=== PATIENT | male | born 1960 | race Caucasian/White ===

== ENCOUNTER 2022-05-12 05:01 | Emergency (ER) | payer BC, SELFPAY ==
[2022-05-12 05:02] VITALS: BP 170/80; PULSE 89; RESP 18; TEMP 36.8; O2SAT 96; BMI 36.3
--- NOTE | 2022-05-12 05:25 | EKG12_ITS ---
Test Reason : Blood Pressure : / mmHG Vent. Rate : 081 BPM Atrial Rate : 081 BPM P-R Int : 162 ms QRS Dur : 078 ms QT Int : 348 ms P-R-T Axes : 060 042 041 degrees QTc Int : 404 ms Normal sinus rhythm Low voltage QRS Borderline ECG Confirmed by JESSICA ROJAS, ZEYAD ([id number]), manager editorial MARY AREVALO ([id number]) on 05/13/2022 9:54:52 AM Referred By: Confirmed By:BELEN LOPEZ MD
--- NOTE | 2022-05-12 05:26 | CT_ITS ---
EXAM: CT ABDOMEN AND PELVIS WITH INTRAVENOUS CONTRAST CLINICAL INDICATION: LLQ pain -- IV PO Contrast LLQ pain -- IV PO Contrast TECHNIQUE: Helically acquired images were obtained of the abdomen and pelvis with intravenous contrast. This CT exam was performed using one or more of the following dose reduction techniques: automated exposure control, adjustment of the mA and/or kV according to patient size, and/or use of iterative reconstruction technique. This report was created using [employer] report generation technology. CONTRAST: Oral and amp; IV Gastrografin and amp; 100mL Isovue-370 RADIATION DOSE: CTDIvol = 18.05 mGy, DLP = 1157.47 mGy-cm COMPARISON: None. FINDINGS: LOWER THORAX: There is a small hiatal hernia. There is mild bilateral posterior basilar atelectasis. No cardiomegaly. No significant pericardial effusion. ABDOMEN: LIVER: There is a small cyst in the left lobe liver. GALLBLADDER AND BILE DUCTS: Gallbladder is absent. No intra- or extrahepatic biliary ductal dilation. PANCREAS: Unremarkable. No focal cystic or solid mass. SPLEEN: The spleen is mildly enlarged. ADRENALS: Unremarkable. No nodules. KIDNEYS AND URETERS: There is a 3 x 3.8 x 2.7 cm mass arising from the medial lower pole left kidney, highly suspicious for renal cell carcinoma. There is a 2 mm nonobstructive left lower pole renal calculus. There is no demonstrated ureteral calculus or hydronephrosis. STOMACH AND BOWEL: There are colonic diverticula. There is mural thickening of the proximal sigmoid colon with adjacent fat infiltration, consistent with acute diverticulitis. There is no associated diverticular abscess or free intraperitoneal air. No stomach or bowel distention. PELVIS: APPENDIX: A normal appendix is seen on axial images 64-73. BLADDER: Assessment urinary bladder is limited by nondistention. REPRODUCTIVE: Unremarkable as visualized. No mass. ABDOMEN and PELVIS: INTRAPERITONEAL SPACE: Unremarkable. No ascites or other fluid collection. No free air. BONES/JOINTS: There are multilevel degenerative changes in the visualized spine. No suspicious lytic or blastic abnormality. SOFT TISSUES: Unremarkable. No discrete abdominal or pelvic wall hernia. 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 Abdominal aorta is non-dilated. LYMPH NODES: Unremarkable. No enlarged lymph nodes. CT/Abdomen/Pelvis WITH Contrast IMPRESSION: 1. 3.8 cm left renal mass, highly suspicious for renal cell carcinoma. Urology consultation is advised. 2. Acute diverticulitis of the proximal sigmoid colon. No demonstrated abscess or free intraperitoneal air. 3. Small nonobstructive left renal calculus. No demonstrated ureteral calculus or hydronephrosis. 4. Previous cholecystectomy. 5. Small hiatal hernia. 6. Mild splenomegaly. 7. Left-sided inferior vena cava, developmental variant. Electronically Signed: Gerber Arango MD at 7:53 EDT ,
--- NOTE | 2022-05-12 05:32 | EX.ED.DYSGE1 ---
HPI History of Present Illness Chief Complaint: Hypertension Detail of Chief Complaint: Hypertension, body aches, abdominal pain, constipation Informant: patient Onset/Context/Timing Onset: Yesterday Context: Gradual Onset Narrative Narrative: Patient presents with just not feeling well over the last 18 hours. He states he can feel his heartbeat in his ears and feels like his blood pressure is elevated. He states he normally runs in the 120s over 80s but does admit he has not had it checked since last October. States he has some body aches with mild headache. He was constipated earlier today. He did take some laxatives and had some results but states he still has lower abdominal pain worse on the left. He has felt feverish but did not measure temperature at home. PFSH PFS Medical History no medical history no medical history Home Medications ciprofloxacin HCl 500 mg tablet (Cipro) 500 mg PO BID #20 tabs 05/12/22 [Rx Last Taken Unknown] metronidazole 500 mg tablet 500 mg PO TID #30 tabs 05/12/22 [Rx Last Taken Unknown] multivitamin 1 cap PO DAILY 05/12/22 [History Last Taken Unknown] naproxen 500 mg tablet 450 mg PO DAILY 05/12/22 [History Last Taken Unknown] sildenafil 50 mg tablet (Viagra) 50 mg PO DAILY PRN Erectile Dysfuntion 05/12/22 [History Last Taken Unknown] Allergy/AdvReac Type Severity Reaction Status Date / Time No Known Allergies Allergy Verified 05/12/22 05:06 Surgical History History of knee replacement Social History Smoking Status: Former smoker ROS ROS ED Constitutional Constitutional ED: Denies chills or fever(s) Eyes Eyes: Denies change in vision or discharge from eye(s) ENT ENT ED: Denies discharge from eye(s), rhinorrhea or sore throat Cardiovascular Cardiovascular: Denies chest pain or palpitations Respiratory/Chest Respiratory/Chest: Denies cough or dyspnea Gastrointestinal Gastrointestinal: Reports abdominal pain and constipation; Denies diarrhea, nausea or vomiting Genitourinary Genitourinary ED: Denies difficulty urinating or dysuria Musculoskeletal Musculoskeletal: Reports myalgias; Denies back pain or extremity pain Integumentary Denies Abrasions or rash Neurologic Neurologic: Reports headache(s); Denies weakness Psychiatric Psychiatric: Denies anxiety or depression Allergic/Immunologic Allergic/Immunologic ED: Denies lip swelling or urticaria EXAM Physical Exam Const Vital Signs: 05/12/22 05:02 05/12/22 05:02 05/12/22 06:52 Temperature 98.2 F Temperature Source Temporal Pulse Rate 89 68 Respiratory Rate 18 19 H Respiratory Effort Normal Respiratory Pattern Normal Blood Pressure 170/80 H 125/86 H Blood Pressure Mean 110 99 Pulse Ox 96 92 Oxygen Delivery Method Room Air Room Air Positive well nourished and well developed General Appearance ED: well developed HEENT Reports normocephalic and head/scalp atraumatic Eyes PERRL and EOMs intact bilaterally Neck supple Chest Wall inspection of chest normal and palpation of chest normal Resp normal respiratory effort and clear to auscultation bilaterally Cardio regular rate and regular rhythm GI GI Narrative: Mild left lower quadrant tenderness to palpation. No guarding or rebound. Palpation: soft Back/Spine no CVA tenderness Extremity normal to inspection Neuro oriented x3 and no sensory deficits noted Sensorium / Orientation: alert Motor Exam: strength 5/5 throughout Psych mental status grossly normal Skin no rashes or lesions noted MDM MDM MDM Narrative Medical decision making narrative: Patient was given morphine and Zofran for pain. Labwork obtained to evaluate for leukocytosis, anemia, and electrolyte derangement. Urinalysis obtained to evaluate for infection/hematuria. CT scan of the abdomen pelvis was obtained given his left lower quadrant pain and constipation with concern for diverticulitis. Lab Data Attestation: I reviewed the patient's lab results. Labs: Laboratory Results - last 24 hr 05/12/22 05/12/22 05/12/22 05:45 05:45 07:00 WBC 12.0 H RBC 5.11 Hgb 14.7 Hct 44.0 MCV 86.1 MCH 28.8 MCHC 33.4 RDW Std Deviation 38.3 RDW Coeff of Siobhan 12.1 Plt Count 264 MPV 8.6 Immature Gran % (Auto) 0.600 Neut % (Auto) 79.8 H Lymph % (Auto) 10.6 L [place] % (Auto) 8.2 Eos % (Auto) 0.4 Baso % (Auto) 0.4 Absolute Neuts (auto) 9.5 H Absolute Lymphs (auto) 1.27 Nucleated RBC % 0 Sodium 142 Potassium 4.3 Chloride 109 H Carbon Dioxide 26.0 Anion Gap 7 BUN 14 Creatinine 1.11 Estim Creat Clear Calc 69.00 Est GFR (MDRD) Af Amer 86 Est GFR (MDRD) Non-Af 71 BUN/Creatinine Ratio 12.6 Glucose 126 H Calcium 9.0 Urine Color Yellow Urine Clarity Clear Urine pH 6.0 Ur Specific [place] 1.015 Urine Protein Negative Urine Glucose (UA) Normal Urine Ketones Negative Urine Occult Blood 10 H Urine Nitrite Negative Urine Bilirubin Negative Urine Urobilinogen Normal Ur Leukocyte Esterase Negative Urine RBC 0 SEEN Urine WBC 0 SEEN Ur Squamous Epith Cells 0 SEEN Urine Bacteria 0 SEEN Urine Mucus 0 SEEN Radiography Diagnostic Testing: Clinical Impression(s) from Imaging Studies Abdomen/Pelvis CT 05/12/22 05:26 IMPRESSION: 1. 3.8 cm left renal mass, highly suspicious for renal cell carcinoma. Urology consultation is advised. 2. Acute diverticulitis of the proximal sigmoid colon. No demonstrated abscess or free intraperitoneal air. 3. Small nonobstructive left renal calculus. No demonstrated ureteral calculus or hydronephrosis. 4. Previous cholecystectomy. 5. Small hiatal hernia. 6. Mild splenomegaly. 7. Left-sided inferior vena cava, developmental variant. Electronically Signed: Gerber Arango MD at 7:53 EDT Reading Location ID and State: [facility] / [place] , Service support , EKG Initial EKG: Attestation: I personally reviewed and interpreted this EKG as follows: Interpretation: Sinus Rhythm (Sinus 81 with no acute ischemia.) Treatment and Re-Evaluation :: CBC reveals a white count of 12.0 with 79% neutrophils. Chemistry studies are unremarkable. Urinalysis is normal. CT scan of the abdomen and pelvis reveals acute diverticulitis of the proximal sigmoid colon. No abscess or free air. There is also a 3.8 cm left renal mass that appears suspicious. Follow-up with urology is advised. On repeat evaluation patient resting comfortably. Systolic blood pressure is down to the 120s. He is complaining of a headache and will be given Tylenol. Test results are discussed with him. He will be started on Cipro and Flagyl for his diverticulitis. He has a urologist at [facility] that he will call on Friday for follow-up to evaluate his left renal mass. Discharge Plan Triage Chief Complaint: Hypertension ED Provider: Johanne Seo Dx/Rx/DC Orders Clinical Impression: Diverticulitis, Renal mass, left Instructions: ED Diverticulitis, ED Tumor, Uncertain Cause Prescriptions: New ciprofloxacin HCl [Cipro] 500 mg tablet 500 mg PO BID Qty: 20 0RF metronidazole 500 mg tablet 500 mg PO TID Qty: 30 0RF No Action sildenafil [Viagra] 50 mg Tablet 50 mg PO DAILY PRN (Reason: Erectile Dysfuntion) Rx Instructions: administer 30 minutes to 4 hours before activity multivitamin Capsule 1 cap PO DAILY naproxen 500 mg Tablet 450 mg PO DAILY Activity Restrictions/Additional Instructions: Please complete your full course of antibiotics to treat your diverticulitis. As discussed, your CT scan does reveal a left renal mass that needs close follow-up. Please call your urologist at [facility] for follow-up soon as possible. Disposition Disposition: Home, Self Care
[2022-05-12] MEDS: Ondansetron 4 MG/2 ML Vial IV (05:41)
[2022-05-12] MEDS: Morphine 4 MG/ML Syringe IV ×2 (05:41→08:39)
[2022-05-12 06:07] LABS: Absolute Lymphocyte Count 1.27 X10^3/uL (0.83-4.51); Absolute Neutrophil Count 9.5 X10^3/uL (2.0-7.7); Basophil# 0.05 X10^3/uL; Basophil% 0.4 % (0-1); Eosinophil# 0.05 X10^3/uL; Eosinophils% 0.4 % (0-5); Hemoglobin 14.7 g/dL (13.0-16.5); Lymphocyte # 1.27 X10^3/ul (0.83-4.51); Lymphocyte % 10.6 % (19-41); Mean Corp Hgb Conc 33.4 g/dL (32-36); Mean Corpuscular Hgb 28.8 pg (27.0-32.0); Mean Corpuscular Volume 86.1 fL (80-94); Mean Platelet Vol. 8.6 fl (6.2-12.0); Monocyte# 0.98 X10^3/uL; Monocyte% 8.2 % (0-10); NRBC Flagged by Analyzer 0 % (0-5); Neutrophil # 9.53 X10^3/uL (2.7-7.7); Neutrophil % 79.8 % (47-70); Platelet Count 264 K/mm3 (150-450); RBC Distribution Width CV 12.1 % (11.6-14.6); RBC Distribution Width SD 38.3 fl (35.1-43.9); Red Blood Count 5.11 M/mm3 (4.6-6.2)
[2022-05-12 06:24] LABS: Anion Gap 7 (5-15); BUN 14 mg/dL (7-18); BUN/Creat Ratio 12.6 RATIO (10-20); Chloride 109 mmol/L (98-107); Creatinine, Serum 1.11 mg/dL (0.70-1.30); EST Glomerular Filtration Rate 71 mL/min (>60); Est Glom Filt Rate - Afr Amer 86 mL/min (>60); Glucose 126 mg/dL (74-106); Potassium 4.3 mmol/L (3.5-5.1); Sodium Level 142 mmol/L (136-145)
[2022-05-12 06:52] VITALS: BP 125/86; PULSE 68; RESP 19; O2SAT 92
[2022-05-12 07:04] LABS: Bacteria 0 SEEN /hpf (None Seen); Mucous, Urine 0 SEEN /hpf (<or=2+); Red Blood Cells-Urine 0 SEEN /hpf (0-5); Squamous Epithelial Cells - UA 0 SEEN /hpf (0-5); White Blood Cells 0 SEEN /hpf (0-5)
[2022-05-12 07:41] LABS: Color, Urine Yellow (Yellow); Glucose, Dipstick Normal (Normal); Ketone-Dipstick Negative (Negative); Leukocyte Esterase-Dipstick Negative /ul (Negative); Nitrite-Dipstick Negative (Negative); Occult Blood-Urine 10 /ul (Negative); Protein-Dipstick Negative (Negative); Specific Gravity, Urine 1.015 (1.002-1.030); Urine Bilirubin Dipstick Negative (Negative); Urine Clarity Clear (Clear); Urine Urobilinogen Normal (Normal)
[2022-05-12] MEDS: Ciprofloxacin 500 MG Tablet PO (08:38)
[2022-05-12] MEDS: Acetaminophen 500 MG Tablet 1000 MG PO (08:39)
[2022-05-12] MEDS: metroNIDAZOLE 500 MG Tablet PO (08:39)
[2022-05-12 08:42] VITALS: BP 110/84; PULSE 78; RESP 16; O2SAT 96
== END 2022-05-12 08:46 | disposition home or self-care (01) ==
PROVIDERS: Emergency Provider Emergency Medicine; Visit Provider Emergency Medicine
DX: K57.32 Diverticulitis of large intestine without perforation or abscess without bleeding (principal); N28.89 Other specified disorders of kidney and ureter; I10 Essential (primary) hypertension; Z79.899 Other long term (current) drug therapy; Z87.891 Personal history of nicotine dependence
CPT/HCPCS: 74177; 80048; 81001; 85025; 87428; 93005; 96374; 96375; 96376; 99285; Q9967; A4216; J2405